=== PATIENT | male | born 2000 | race Caucasian/White ===

== ENCOUNTER 2020-10-24 07:40 | Emergency (ER) | payer OTHER ==
--- NOTE | 2020-10-24 09:14 | RAD REPORT ---
EXAM DESCRIPTION: RAD -Hand Left 3 View - 10/24/2020 8:53 am CLINICAL HISTORY: Left hand pain status post injury FINDINGS: Lateral subluxation of the first proximal phalanx. No fracture seen
[2020-10-24] MEDS ORDERED: KETOROLAC 30 MG/ML INJ ONE (10:16)
--- NOTE | 2020-10-24 10:34 | ER ---
Nurse's Notes [facility] Name: Scott Norton Age: 20 yrs Sex: Male : 2000 Arrival Date: 10/24/2020 Time: 07:43 Bed 8 Private MD: Diagnosis: Other sprain of left thumb-disruption of unspecified ligament of left thumb Presentation: 10/24 07:46 Chief complaint: Patient states: Pt is at [facility]. Pt states "the guards were aa5 restraining me and my hand slipped out of the cuff and hurt my thumb". Left thumb deformity noted. Coronavirus screen: At this time, the client does not indicate any symptoms associated with coronavirus-19. Ebola Screen: Patient negative for fever greater than or equal to 101.5 degrees Fahrenheit, and additional compatible Ebola Virus Disease symptoms. Initial Sepsis Screen: Does the patient meet any 2 criteria? No. Patient's initial sepsis screen is negative. Does the patient have a suspected source of infection? No. Patient's initial sepsis screen is negative. Risk Assessment: Do you want to hurt yourself or someone else? Patient reports no desire to harm self or others. Onset of symptoms was October 23, 2020. 07:46 Method Of Arrival: Law Enforcement: [place] [employer] aa5 07:46 Acuity: MADY 4 aa5 Historical: - Allergies: 07:49 No Known Allergies; aa5 - Home Meds: 07:49 Depakote 1000mg Oral once daily [Active]; aa5 - PMHx: 07:49 Seizure; aa5 - PSHx: 07:49 Appendectomy; Right Knee; aa5 - Immunization history:: Adult Immunizations unknown. - Social history:: Smoking status: Patient denies any tobacco usage or history of. Screenin:51 Abuse screen: Denies threats or abuse. Nutritional screening: No deficits noted. aa5 Tuberculosis screening: No symptoms or risk factors identified. Fall Risk None identified. Assessment: 07:50 General: Appears comfortable, Behavior is calm, cooperative. Pain: Complains of pain in aa5 left thumb Pain currently is 8 out of 10 on a pain scale. Neuro: Level of Consciousness is awake, alert, obeys commands, Oriented to person, place, time, situation. Cardiovascular: Patient's skin is warm and dry. Respiratory: Airway is patent Respiratory effort is even, unlabored, Respiratory pattern is regular, symmetrical. GI: No signs and/or symptoms were reported involving the gastrointestinal system. : No signs and/or symptoms were reported regarding the genitourinary system. EENT: No signs and/or symptoms were reported regarding the EENT system. Derm: Skin is pink, warm \\T\\ dry. Musculoskeletal: Deformity to left thumb noted. 09:56 Reassessment: Patient is alert, oriented x 3, equal unlabored respirations, skin aa5 warm/dry/pink. 10:30 Reassessment: Patient is alert, oriented x 3, equal unlabored respirations, skin aa5 warm/dry/pink. Vital Signs: 07:46 BP 144 / 79; Pulse 72; Resp 16 S; Temp 97.0(TE); Pulse Ox 99% on R/A; Weight 95.25 kg aa5 (R); Height 5 ft. 9 in. (175.26 cm) (R); Pain 8/10; 10:00 BP 136 / 64; Pulse 66; Resp 16 S; Pulse Ox 100% on R/A; aa5 07:46 Body Mass Index 31.01 (95.25 kg, 175.26 cm) aa5 ED Course: 07:43 Patient arrived in ED. iw 07:44 Solis Rainey NP is PHCP. pm1 07:44 Charles Escalera MD is Attending Physician. pm1 07:46 Alisha Perez, KAYLA is Primary Nurse. aa5 07:46 Arm band placed on. aa5 07:46 Patient has correct armband on for positive identification. Bed in low position. Nursing Home aa5 guard at bedside and another guard immigration outside of pt's room. pt restrained by guards with handcuffs and chains to feet. 07:49 Triage completed. aa5 08:53 Hand Left 3 View XRAY In Process Unspecified. EDMS 10:30 Orthoglass splint: Thumb spica splint applied on left forearm. Applied by PA. aa5 10:38 Rashaun Araiza MD is Referral Physician. pm1 10:45 No provider procedures requiring assistance completed. Patient did not have IV access aa5 during this emergency room visit. Administered Medications: 09:55 Drug: Ketorolac 60 mg Route: IM; Site: right gluteus; aa5 10:30 Follow up: Response: No adverse reaction aa5 Outcome: 10:33 Discharge ordered by MD. pm1 10:45 Discharged to Law Enforcement aa5 10:45 Condition: stable 10:45 Discharge instructions given to patient, Instructed on discharge instructions, follow up and referral plans. Demonstrated understanding of instructions, follow-up care. 10:48 Patient left the ED. aa5 Signatures: Dispatcher [employer] Raisa North RN RN iw Calderon, Audri, RN RN aa5 Solis Rainey, MICHELLE WORKFORCE INVESTMENT ACT CAREER MANAGER pm1 Corrections: (The following items were deleted from the chart) 07:50 07:46 Onset of symptoms was October 24, 2020 aa5 aa5
--- NOTE | 2020-10-24 10:34 | EDPHYS ---
Physician Documentation [facility] Name: Scott Norton Age: 20 yrs Sex: Male : 2000 Arrival Date: 10/24/2020 Time: 07:43 Bed 8 Private MD: NASRIN Physician Charles Escalera HPI: 10/24 07:51 This 20 yrs old Male presents to ER via Law Enforcement with complaints of pm1 Thumb Injury. 07:51 The patient or guardian reports deformity. The complaints affect the left thumb. pm1 Context: The problem was sustained at a Half-Way, resulted from Handcuffs slipping down hand. Onset: The symptoms/episode began/occurred last night. Modifying factors: The symptoms are alleviated by nothing, the symptoms are aggravated by nothing. Associated signs and symptoms: Pertinent negatives: cyanosis distally, decreased sensation distally, numbness distally, tingling distally. Severity of symptoms: in the emergency department the symptoms are unchanged. The patient has not experienced similar symptoms in the past. The patient has not recently seen a physician. Patient presenting to the ER with complaints of left thumb injury. Occurred last night. Patient reports that he was restrained with handcuffs while to guards were pulling at each elbow. It caused his hand cuffs to slide down his hands and injure his left thumb. Historical: - Allergies: 07:49 No Known Allergies; aa5 - Home Meds: 07:49 Depakote 1000mg Oral once daily [Active]; aa5 - PMHx: 07:49 Seizure; aa5 - PSHx: 07:49 Appendectomy; Right Knee; aa5 - Immunization history:: Adult Immunizations unknown. - Social history:: Smoking status: Patient denies any tobacco usage or history of. ROS: 07:51 Constitutional: Negative for fever, chills, and weight loss, Cardiovascular: Negative pm1 for chest pain, palpitations, and edema, Respiratory: Negative for shortness of breath, cough, wheezing, and pleuritic chest pain. 07:51 Skin: Negative for injury, rash, and discoloration, Neuro: Negative for headache, weakness, numbness, tingling, and seizure. 07:51 MS/extremity: Positive for deformity, pain, of the left hand and left thumb, Negative for paresthesias, tingling. 07:51 All other systems are negative. Exam: 07:51 Constitutional: This is a well developed, well nourished patient who is awake, alert, pm1 and in no acute distress. Head/Face: Normocephalic, atraumatic. 07:51 Skin: Warm, dry with normal turgor. Normal color with no rashes, no lesions, and no evidence of cellulitis. 07:51 Cardiovascular: Rate: normal, Rhythm: regular, Pulses: no pulse deficits are appreciated. 07:51 Respiratory: Exam negative for acute changes, respiratory distress, shortness of breath. 07:51 Musculoskeletal/extremity: Extremities: grossly normal except: noted in the left thumb: deformity, Circulation is intact in all extremities. 07:51 Neuro: Exam negative for acute changes, Orientation: is normal, Mentation: is normal, Motor: is normal, moves all fours. Vital Signs: 07:46 BP 144 / 79; Pulse 72; Resp 16 S; Temp 97.0(TE); Pulse Ox 99% on R/A; Weight 95.25 kg aa5 (R); Height 5 ft. 9 in. (175.26 cm) (R); Pain 8/10; 10:00 BP 136 / 64; Pulse 66; Resp 16 S; Pulse Ox 100% on R/A; aa5 07:46 Body Mass Index 31.01 (95.25 kg, 175.26 cm) aa5 Procedures: 10:27 Splinting: Splint applied to left thumb using Orthoglass splint, thumb spica. applied pm1 by myself. Examined by me, post splint application: neurovascular intact, 2+ distal pulses palpable, brisk capillary refill noted, Patient tolerated well. MDM: 07:45 Patient medically screened. pm1 09:28 ED course: Evaluated by Dr. Escalera. When thumb is reduced, it sublux back. There pm1 treatment will be placement of thumb spica to left hand with reduction and follow-up with hand surgeon. 09:30 Data reviewed: vital signs. Data interpreted: Pulse oximetry: on room air is 99 %. pm1 Interpretation: normal. 09:42 ED course: Discussed with the guards the need for a thumb spica splint and its pm1 placement to left arm. Pending authorization for cuff removal for splint placement. 10:27 Counseling: I had a detailed discussion with the patient and/or guardian regarding: the pm1 historical points, exam findings, and any diagnostic results supporting the discharge/admit diagnosis, radiology results, the need for outpatient follow up, for definitive care, a hand specialist, to return to the emergency department if symptoms worsen or persist or if there are any questions or concerns that arise at home. 10:38 ED course: Discussed with patient results and care with prisoner managed care. They pm1 dispositioned him with follow up care to hand surgery. 10/24 07:51 Order name: Hand Left 3 View XRAY; Complete Time: 09:22 pm1 10/24 09:41 Order name: Thumb Spica Splint; Complete Time: 10:08 pm1 Administered Medications: 09:55 Drug: Ketorolac 60 mg Route: IM; Site: right gluteus; aa5 10:30 Follow up: Response: No adverse reaction aa5 Disposition: 10/25 09:14 Co-signature as Attending Physician, Charles Escalera MD I agree with the assessment and brice plan of care. Disposition Summary: 10/24/20 10:33 Discharge Ordered Location: Home pm1 Problem: new pm1 Symptoms: have improved pm1 Condition: Stable pm1 Diagnosis - Other sprain of left thumb - disruption of unspecified ligament of left pm1 thumb(10/24/20 10:37) Followup: pm1 - With: Emergency Department - When: As needed - Reason: Worsening of condition Followup: pm1 - With: Private Physician - When: 2 - 3 days - Reason: Recheck today's complaints, Continuance of care, Re-evaluation by your physician Followup: pm1 - With: Rashaun Araiza MD - When: 2 - 3 days - Reason: Recheck today's complaints, Continuance of care, Re-evaluation by your physician Discharge Instructions: - Discharge Summary Sheet pm1 - Cast or Splint Care, Adult pm1 - Thumb Sprain pm1 Forms: - Medication Reconciliation Form pm1 - Thank You Letter pm1 - Antibiotic Education pm1 - Prescription Opioid Use pm1 Signatures: Dispatcher [employer] Charles Newman MD MD cha Calderon, Audri, RN RN aa5 Solis Rainey, MICHELLE THROW OUT CLERK pm1 Corrections: (The following items were deleted from the chart) 10/24 10:37 10:33 Other sprain of left thumb pm1 pm1
[2020-10-24 10:53] VITALS: BP 144/79; TEMP 97; O2SAT 99
== END 2020-10-24 10:48 | disposition home or self-care (01) ==
LOC: ER 07:40
PROC: 2W3HX1Z Immobilization of Left Thumb using Splint (ICD-10-PCS; principal; 2020-10-24)
DX: S63.682A Other sprain of left thumb, initial encounter (principal); X58.XXXA Exposure to other specified factors, initial encounter; Y93.89 Activity, other specified; Y92.149 Unspecified place in prison as the place of occurrence of the external cause
CPT/HCPCS: 96372; 99283